=== PATIENT | male | born 1945 | race Caucasian/White ===

== ENCOUNTER 2017-04-01 23:26 | Emergency (ER) | payer MEDICARE, OTHER ==
[2017-04-01 23:37] VITALS: TEMP 97.9
[2017-04-01] MEDS ORDERED: SODIUM CHLORIDE 0.9% 1,000 ML IV STA (23:44)
[2017-04-01 23:46] LABS: Glucose,Whole Blood 119 mg/dL (75-99)
--- NOTE | 2017-04-01 23:47 | ED ---
General Adult HPI - General Chief complaint: Neuro Symptoms/Deficit Stated complaint: Arm Numbness/Difficulty Speaking Time Seen by Provider: 04/01/17 23:38 Source: patient, family, RN notes reviewed Mode of arrival: ambulatory Limitations: no limitations - History of Present Illness Initial comments: Patient is a pleasant 71-year-old male presenting to the emergency department complaining of speech problems. Onset was around an hour ago. Symptoms lasted 30-45 minutes. Symptoms have now resolved. Patient felt he was thinking okay however was unable to form words. Patient also had tingling of his right arm. No weakness. No coordination problems. No history of similar symptoms previously. Patient is currently symptom-free. No headache. - Related Data Home Medications Medication Instructions Recorded Confirmed Cephalexin [Keflex] 500 mg PO QID 04/01/17 04/01/17 Morphine Sulfate Ir [Msir] 30 mg PO QID PRN 04/01/17 04/01/17 Naproxen Sodium [Aleve] 220 mg PO Q12HR PRN 04/01/17 04/01/17 Allergies Allergy/AdvReac Type Severity Reaction Status Date / Time No Known Allergies Allergy Verified 04/01/17 23:52 Review of Systems ROS Statement: Those systems with pertinent positive or pertinent negative responses have been documented in the HPI. ROS Other: All systems not noted in ROS Statement are negative. Constitutional: Denies: fever Eyes: Denies: eye pain ENT: Denies: ear pain Respiratory: Denies: cough Cardiovascular: Denies: chest pain Endocrine: Denies: fatigue Gastrointestinal: Denies: abdominal pain Genitourinary: Denies: dysuria Musculoskeletal: Denies: back pain Skin: Denies: rash Neurological: Reports: paresthesias. Denies: headache, weakness Past Medical History History of Any Multi-Drug Resistant Organisms: None Reported Past Surgical History: Appendectomy, Orthopedic Surgery, Tonsillectomy Additional Past Surgical History / Comment(s): rotator cuff Past Psychological History: No Psychological Hx Reported Smoking Status: Former smoker Past Alcohol Use History: None Reported Past Drug Use History: None Reported General Exam Limitations: no limitations General appearance: alert, in no apparent distress Head exam: Present: atraumatic Eye exam: Present: normal appearance, PERRL ENT exam: Present: normal oropharynx Neck exam: Present: normal inspection Respiratory exam: Present: normal lung sounds bilaterally. Absent: chest wall tenderness Cardiovascular Exam: Present: regular rate, normal rhythm GI/Abdominal exam: Present: soft. Absent: tenderness Extremities exam: Present: normal inspection Neurological exam: Present: alert, oriented X3, CN II-XII intact. Absent: motor sensory deficit Expanded Patient oriented to: Present: person, place, time Speech: Present: fluid speech Cranial nerves: EOM's Intact: Normal, Facial Sensation: Normal Sensory exam: Upper Extremity Light Touch: Normal, Lower Extremity Light Touch: Normal Motor strength exam: RUE: 5, LUE: 5, RLE: 5, LLE: 5 Eye Response: (4) open spontaneously Motor Response: (6) obeys commands Verbal Response: (5) oriented Psychiatric exam: Present: normal affect, normal mood Skin exam: Present: normal color Course Vital Signs 04/01/17 04/02/17 23:33 00:27 Temperature 97.9 F Pulse Rate 78 66 Respiratory 18 20 Rate Blood Pressure 169/74 133/71 O2 Sat by Pulse 96 94 L Oximetry EKG Findings - EKG Comments: EKG Findings:: No sinus rhythm 70. First-degree AV block NH of 204. QRS 110. QT 434. QTC 416. Left axis. Incomplete right bundle-branch block. Left anterior fascicular block. No acute ST change. Medical Decision Making - Medical Decision Making Patient reevaluated and resting comfortably in bed. Patient remained symptom- free. Patient updated on results and need for follow-up. Case discussed with practitioner Dale, who will admit for Dr. Fox, covering for Dr. Troy - Lab Data Result diagrams: 04/01/17 23:40 04/01/17 23:40 Lab Results 04/01/17 04/01/17 04/01/17 Range/Units 23:39 23:40 23:40 WBC 8.7 (3.8-10.6) k/uL RBC 4.89 (4.30-5.90) m/uL Hgb 15.1 (13.0-17.5) gm/dL Hct 45.3 (39.0-53.0) % MCV 92.6 (80.0-100.0) fL MCH 30.8 (25.0-35.0) pg MCHC 33.3 (31.0-37.0) g/dL RDW 14.3 (11.5-15.5) % Plt Count 237 (150-450) k/uL Neutrophils % 52 % Lymphocytes % 33 % Monocytes % 7 % Eosinophils % 4 % Basophils % 1 % Neutrophils # 4.5 (1.3-7.7) k/uL Lymphocytes # 2.9 (1.0-4.8) k/uL Monocytes # 0.6 (0-1.0) k/uL Eosinophils # 0.4 (0-0.7) k/uL Basophils # 0.1 (0-0.2) k/uL PT (9.0-12.0) sec INR (<1.2) APTT (22.0-30.0) sec Sodium (137-145) mmol/L Potassium (3.5-5.1) mmol/L Chloride (98-107) mmol/L Carbon Dioxide (22-30) mmol/L Anion Gap mmol/L BUN (9-20) mg/dL Creatinine (0.66-1.25) mg/dL Est GFR (MDRD) Af Amer (>60 ml/min/1.73 sqM) Est GFR (MDRD) Non-Af (>60 ml/min/1.73 sqM) Glucose (74-99) mg/dL POC Glucose (mg/dL) 119 H (75-99) mg/dL POC Glu Squilgeer ID Adriano Okeefe Calcium (8.4-10.2) mg/dL Total Bilirubin (0.2-1.3) mg/dL AST (17-59) U/L ALT (21-72) U/L Alkaline Phosphatase (38-126) U/L Total Creatine Kinase 216 H (55-170) U/L Total Protein (6.3-8.2) g/dL Albumin (3.5-5.0) g/dL 04/01/17 04/01/17 Range/Units 23:40 23:40 WBC (3.8-10.6) k/uL RBC (4.30-5.90) m/uL Hgb (13.0-17.5) gm/dL Hct (39.0-53.0) % MCV (80.0-100.0) fL MCH (25.0-35.0) pg MCHC (31.0-37.0) g/dL RDW (11.5-15.5) % Plt Count (150-450) k/uL Neutrophils % % Lymphocytes % % Monocytes % % Eosinophils % % Basophils % % Neutrophils # (1.3-7.7) k/uL Lymphocytes # (1.0-4.8) k/uL Monocytes # (0-1.0) k/uL Eosinophils # (0-0.7) k/uL Basophils # (0-0.2) k/uL PT 10.8 (9.0-12.0) sec INR 1.1 (<1.2) APTT 24.5 (22.0-30.0) sec Sodium 141 (137-145) mmol/L Potassium 4.5 (3.5-5.1) mmol/L Chloride 106 (98-107) mmol/L Carbon Dioxide 24 (22-30) mmol/L Anion Gap 11 mmol/L BUN 23 H (9-20) mg/dL Creatinine 0.90 (0.66-1.25) mg/dL Est GFR (MDRD) Af Amer >60 (>60 ml/min/1.73 sqM) Est GFR (MDRD) Non-Af >60 (>60 ml/min/1.73 sqM) Glucose 117 H (74-99) mg/dL POC Glucose (mg/dL) (75-99) mg/dL POC Glu Squilgeer ID Calcium 9.3 (8.4-10.2) mg/dL Total Bilirubin 0.5 (0.2-1.3) mg/dL AST 30 (17-59) U/L ALT 39 (21-72) U/L Alkaline Phosphatase 32 L (38-126) U/L Total Creatine Kinase (55-170) U/L Total Protein 6.9 (6.3-8.2) g/dL Albumin 4.0 (3.5-5.0) g/dL - Radiology Data Radiology results: report reviewed (Computed tomography scan the brain shows no acute process), image reviewed (Chest x-ray shows no acute process) Disposition Clinical Impression: Transient cerebral ischemia Disposition: ADMITTED IP TO THIS [facility] Referrals: Chris Bedoya DO [Primary Care Provider] - 1-2 days Decision Time: 00:47
[2017-04-02 00:17] LABS: INR 1.1 (<1.2); Partial Thromboplastin Time 24.5 sec (22.0-30.0); Prothrombin Time 10.8 sec (9.0-12.0)
--- NOTE | 2017-04-02 00:22 | CT ---
EXAM: CT Head Without Intravenous Contrast. CLINICAL HISTORY: Reason: Neuro Deficits TECHNIQUE: Axial computed tomography images of the head/brain without intravenous contrast. CTDI is 57.4 mGy and DLP is 1030 mGy-cm. This CT exam was performed using one or more of the following dose reduction techniques: automated exposure control, adjustment of the mA and/or kV according to patient size, and/or use of iterative reconstruction technique. COMPARISON: No relevant prior studies available. FINDINGS: Brain: Age-appropriate volume loss and chronic microvascular ischemic changes. No hemorrhage. Ventricles: Unremarkable. No ventriculomegaly. Bones: Subcentimeter foreign body superficial to the left lateral orbital wall. No acute fracture. Sinuses: Unremarkable as visualized. No acute sinusitis. Mastoid air cells: Unremarkable as visualized. No mastoid effusion. IMPRESSION: No acute intracranial abnormality.
[2017-04-02 00:25] LABS: ALT 39 U/L (21-72); AST 30 U/L (17-59); Alkaline Phosphatase 32 U/L (38-126); Anion Gap 11 mmol/L; Blood Urea Nitrogen 23 mg/dL (9-20); Calcium 9.3 mg/dL (8.4-10.2); Carbon Dioxide 24 mmol/L (22-30); Chloride 106 mmol/L (98-107); Glucose 117 mg/dL (74-99); Non-African American GFR(MDRD) >60 (>60 ml/min/1.73 sqM); Potassium 4.5 mmol/L (3.5-5.1); Sodium 141 mmol/L (137-145); Total Bilirubin 0.5 mg/dL (0.2-1.3); Total Protein 6.9 g/dL (6.3-8.2)
--- NOTE | 2017-04-02 00:25 | XR ---
EXAM: XR Chest, 2 Views. CLINICAL HISTORY: Reason: altered mental status TECHNIQUE: Frontal and lateral views of the chest. COMPARISON: No relevant prior studies available. FINDINGS: Lungs: Unremarkable. No consolidation. Pleural spaces: Unremarkable. No pneumothorax. Heart: Unremarkable. No cardiomegaly. Mediastinum: Unremarkable. Bones: 13 mm foreign body projected over the T10 vertebral body. No acute fracture. IMPRESSION: No acute findings in the chest. 13 mm foreign body projected over the T10 vertebral body.
[2017-04-02 00:31] LABS: Basophils # (A) 0.1 k/uL (0-0.2); Basophils % (A) 1 %; CH 31.8; CHCM 34.5; Eosinophils # (A) 0.4 k/uL (0-0.7); Eosinophils % (A) 4 %; HCT 45.3 % (39.0-53.0); HDW 2.58; HGB 15.1 gm/dL (13.0-17.5); Luc # (Auto) 0.24; Luc % (Auto) 3; Lymphocytes # (A) 2.9 k/uL (1.0-4.8); Lymphocytes % (A) 33 %; MCH 30.8 pg (25.0-35.0); MCHC 33.3 g/dL (31.0-37.0); MCV 92.6 fL (80.0-100.0); Mean Platelet Volume 7.6; Monocytes # (A) 0.6 k/uL (0-1.0); Monocytes % (A) 7 %; Neutrophils # (A) 4.5 k/uL (1.3-7.7); Neutrophils % (A) 52 %; RBC 4.89 m/uL (4.30-5.90); RDW 14.3 % (11.5-15.5); WBC 8.7 k/uL (3.8-10.6)
[2017-04-02 00:32] LABS: Creatine Kinase 216 U/L (55-170)
[2017-04-02 00:45] LABS: Creatine Kinase MB 2.4 ng/mL (0.0-2.4); Troponin I <0.012 ng/mL (0.000-0.034)
[2017-04-02] MEDS ORDERED: ASPIRIN 325 MG TAB PO STA (00:48)
[2017-04-02] MEDS ORDERED: SODIUM CHLORIDE 0.9% 1,000 ML IV SCH (01:00)
[2017-04-02 01:30] VITALS: BP 156/67; PULSE 63; RESP 16
[2017-04-03] MEDS ORDERED: ASPIRIN 325 MG TAB PO SCH (09:00)
== END 2017-04-02 01:38 | disposition left against medical advice (07) ==
LOC: EC 23:26 → 6SEL 04-02 00:48 → UNDOADMIN 04-02 00:48 → EC 04-02 01:38
DX: G45.9 Transient cerebral ischemic attack, unspecified (principal); Z87.891 Personal history of nicotine dependence
CPT/HCPCS: 36415; 70450; 71020; 80053; 82550; 82553; 84484; 85025; 85610; 85730; 93005; 96360; 99284

== ENCOUNTER 2017-04-02 11:25 | Inpatient (IN) | payer OTHER, MEDICARE ==
[2017-04-02] MEDS ORDERED: SODIUM CHLORIDE 0.9% 1,000 ML IV STA (11:50)
[2017-04-02] MEDS ORDERED: SODIUM CHLORIDE 0.9% 500 ML IV STA (11:50)
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
[2017-04-02 12:13] LABS: Basophils % (A) 0 %; CH 31.1; CHCM 34.2; Eosinophils # (A) 0.2 k/uL (0-0.7); Eosinophils % (A) 3 %; HCT 44.6 % (39.0-53.0); HGB 15.6 gm/dL (13.0-17.5); Luc # (Auto) 0.16; Luc % (Auto) 2; Lymphocytes # (A) 2.1 k/uL (1.0-4.8); Lymphocytes % (A) 30 %; MCH 31.9 pg (25.0-35.0); MCV 91.3 fL (80.0-100.0); Mean Platelet Volume 6.9; Monocytes # (A) 0.5 k/uL (0-1.0); Monocytes % (A) 7 %; Neutrophils # (A) 3.9 k/uL (1.3-7.7); Neutrophils % (A) 57 %; RBC 4.88 m/uL (4.30-5.90); RDW 13.2 % (11.5-15.5); WBC 6.9 k/uL (3.8-10.6)
[2017-04-02 12:22] LABS: Partial Thromboplastin Time 24.8 sec (22.0-30.0); Prothrombin Time 10.6 sec (9.0-12.0)
[2017-04-02 12:31] LABS: ALT 39 U/L (21-72); AST 27 U/L (17-59); Alkaline Phosphatase 29 U/L (38-126); Anion Gap 10 mmol/L; Blood Urea Nitrogen 21 mg/dL (9-20); Calcium 9.4 mg/dL (8.4-10.2); Carbon Dioxide 25 mmol/L (22-30); Chloride 106 mmol/L (98-107); Glucose 95 mg/dL (74-99); Non-African American GFR(MDRD) >60 (>60 ml/min/1.73 sqM); Phosphorous 3.6 mg/dL (2.5-4.5); Potassium 4.6 mmol/L (3.5-5.1); Sodium 141 mmol/L (137-145); Total Bilirubin 0.4 mg/dL (0.2-1.3); Total Protein 7.1 g/dL (6.3-8.2)
[2017-04-02 12:39] LABS: Creatine Kinase 186 U/L (55-170)
[2017-04-02 12:50] LABS: Creatine Kinase MB 2.2 ng/mL (0.0-2.4); Troponin I <0.012 ng/mL (0.000-0.034)
[2017-04-02] MEDS ORDERED: ASPIRIN 325 MG TAB PO STA (13:18)
--- NOTE | 2017-04-02 15:03 | US ---
EXAMINATION TYPE: US carotid duplex BILAT DATE OF EXAM: 04/02/2017 COMPARISON: NONE CLINICAL HISTORY: Stenosis. EXAM MEASUREMENTS: RIGHT: Peak Systolic Velocity (PSV) cm/sec ----- Right CCA: 44.2 ----- Right ICA: 208.0 ----- Right ECA: 117.3 ICA/CCA ratio: 4.7 RIGHT: End Diastole cm/sec ----- Right CCA: 14.2 ----- Right ICA: 72.1 ----- Right ECA: 12.5 LEFT: Peak Systolic Velocity (PSV) cm/sec ----- Left CCA: 32.9 ----- Left ICA: --- ----- Left ECA: 71.1 ICA/CCA ratio: ---- LEFT: End Diastole cm/sec ----- Left CCA: 4.2 ----- Left ICA: --- ----- Left ECA: 8.9 VERTEBRALS (direction of flow): Right Vertebral: Antegrade Left Vertebral: Antegrade Severe atherosclerotic changes, right side shows near occlusion by ratio, unable to visualized distal ICA on right. This may be due to diving of vessel or possible distal stenosis. Left ICA appears to b e occluded. IMPRESSION: 1. Failure to visualize flow within the left ICA may represent occlusion or near occlusion. 2. ICA/CCA ratio >4 suggests near occlusion on the right. Flow velocity is 208 cm/s may be on the cade nward slope of near occlusion. Criteria for Assigning % of Stenosis / Diameter reduction (Estimation based on the indirect measurements of the internal carotid artery velocities (ICA PSV). 1. Normal (no stenosis)=ICA PSV < 125 cm/s: ratio < 2.0: ICA EDV<40 cm/s. 2. Less than 50% stenosis=ICA PSV < 125 cm/s: ratio < 2.0: ICA EDV<40 cm/s. 3. 50 to 69% stenosis=ICA PSV of 125 to 230 cm/s: ration 2.0 ? 4.0: ICA EDV 40-100 cm/s. 4. Greater than 70% stenosis to near occlusion= ICA PSV > 230 cm/s: ratio > 4.0: ICA EDV > 100 cm/s. 5. Near occlusion= ICA PSV velocities may be low or undetectable: variable ratio and ICA EDV. 6. Total occlusion=unable to detect flow.
[2017-04-02] MEDS ORDERED: hydrALAZINE HCL 20 MG/ML 1 ML VIAL IVP STA (15:33)
[2017-04-02] MEDS ORDERED: ONDANSETRON 4 MG/2 ML VIAL IVP STA (15:45)
[2017-04-02] MEDS ORDERED: ONDANSETRON 4 MG/2 ML VIAL IVP PRN (15:45)
[2017-04-02] MEDS ORDERED: MORPHINE SULFATE IR 15 MG TABLET PO PRN (18:21)
[2017-04-02] MEDS: SODIUM CHLORIDE 0.9% 1,000 ML IV SCH (18:24)
[2017-04-02] MEDS ORDERED: RX INFO: IV CONTRAST WAS GIVEN 1 EACH MISC MISCELLANE PRN (19:53)
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
--- NOTE | 2017-04-02 21:45 | CT ---
EXAMINATION TYPE: CT angio head neck DATE OF EXAM: 04/02/2017 HISTORY: Bilateral carotid occlusive disease. COMPARISON: NONE CT DLP: 320.40 mGycm. Automated Exposure Control for Dose Reduction was Utilized. TECHNIQUE: CTA scan of the neck is performed with IV Contrast, patient injected with 65 mL of Omnipa que 350, axial images are obtained, coronal and sagittal reformatted images are reviewed. Three-D rec onstructed images are created on an independent workstation and reviewed. FINDINGS: There is normal branching pattern of the great vessels on the aortic arch. There is arterial flow in both vertebral arteries. Left vertebral artery is larger than the right. There is arterial flow in the common carotid arteries bilaterally. There is apparent complete occlusi on of the left internal carotid artery at its origin. There is significant plaque at the right caroti d artery bifurcation and at least 50% stenosis and probably closer to 80% stenosis. There is arterial flow in the anterior middle and posterior cerebral arteries. There is arterial flow in the vertebrobasilar artery system. I see no evidence of aneurysm or neovascularity. There is no m ass effect. There is normal contrast opacification of the venous sinuses. IMPRESSION: There is complete occlusion of the left internal carotid artery at its origin with no internal caroti d artery flow seen on the left side to the infraclinoid region. There is probably more than 50% stenosis at the origin of the right internal carotid artery. This madeline nosis could be higher than 80%. No significant abnormality seen within the intracranial arterial circulation.
[2017-04-02] MEDS: PANTOPRAZOLE 40 MG TABLET PO SCH (22:01)
[2017-04-03] MEDS: SODIUM CHLORIDE 0.9% 1,000 ML IV SCH ×2 (02:41→10:11)
[2017-04-03 05:53] LABS: Appearance,Urine Clear (Clear); Bilirubin,Urine Negative (Negative); Glucose,Urine (UA) Negative (Negative); Ketones,Urine Negative (Negative); Leukocyte Esterase,Urine Negative (Negative); Nitrite,Urine Negative (Negative); Protein,Urine Negative (Negative); UA Billing (MACRO vs. MICRO) CHEM; Urobilinogen,Urine <2.0 mg/dL (<2.0)
[2017-04-03] MEDS: PANTOPRAZOLE 40 MG TABLET PO SCH (06:01)
[2017-04-03 07:27] LABS: Anion Gap 8 mmol/L; Blood Urea Nitrogen 17 mg/dL (9-20); Calcium 8.5 mg/dL (8.4-10.2); Carbon Dioxide 23 mmol/L (22-30); Chloride 111 mmol/L (98-107); Cholesterol 112 mg/dL (<200); Glucose 88 mg/dL (74-99); HDL Cholesterol 54 mg/dL (40-60); Non-African American GFR(MDRD) >60 (>60 ml/min/1.73 sqM); Potassium 4.3 mmol/L (3.5-5.1); Sodium 142 mmol/L (137-145); Triglycerides 60 mg/dL (<150)
[2017-04-03 07:28] LABS: Basophils % (A) 0 %; CHCM 33.2; Eosinophils # (A) 0.2 k/uL (0-0.7); Eosinophils % (A) 3 %; HDW 2.56; HGB 13.6 gm/dL (13.0-17.5); Luc # (Auto) 0.13; Luc % (Auto) 2; Lymphocytes % (A) 32 %; MCH 31.2 pg (25.0-35.0); MCHC 33.2 g/dL (31.0-37.0); MCV 93.7 fL (80.0-100.0); Mean Platelet Volume 6.8; Monocytes # (A) 0.4 k/uL (0-1.0); Monocytes % (A) 7 %; Neutrophils # (A) 3.5 k/uL (1.3-7.7); Neutrophils % (A) 56 %; RBC 4.37 m/uL (4.30-5.90); RDW 13.3 % (11.5-15.5); WBC 6.3 k/uL (3.8-10.6); WBC (Perox) 6.56
[2017-04-03] MEDS ORDERED: ASPIRIN 325 MG TAB PO SCH (09:00)
[2017-04-03] MEDS ORDERED: ASPIRIN 81 MG CHEW PO SCH (09:00)
--- NOTE | 2017-04-03 09:53 | HP ---
DATE OF ADMISSION: 04/02/17 CHIEF COMPLAINT: Difficulty speaking as well as dizziness. HISTORY OF PRESENT ILLNESS: This 71-year-old gentleman with a past medical history of multiple medical problems including DJD, prostate disorder, history of appendectomy being followed by Dr. Bedoya in the outpatient setting presented to the emergency room yesterday complaining of speech problems as well as dizziness. The patient unable to talk and the patient was recommended admission to the hospital at that time. Apparently, the patient went home and because of persistent symptoms, the patient came to [facility] and was admitted for further recommendations and treatment. There is no history of fever, rigors or chills. No history of headache, loss of consciousness or seizures. Carotid Doppler was done which showed of the right carotid artery. There is no history of fever, rigors or chills. Past medical history of rheumatoid arthritis, history of blood clots. SOCIAL HISTORY: Previous history of smoking. No history of alcohol. Medications prior to admission are: Home medications are reviewed and include : neg REVIEW OF SYSTEMS: HEENT: No diminished vision. No diminished hearing. Cardiovascular system: No angina or palpitations. Respiratory: As mentioned earlier. GI: No nausea or vomiting. : No dysuria. Nervous system: No numbness, weakness. Allergy/Immunology: No asthma or hayfever. Musculoskeletal : As mentioned earlier. Hematology/oncology: No history of anemia. Endocrine. No history of diabetes mellitus or hypothyroidism. Constitutional: As mentioned earlier. Dermatology: Negative. Rheumatology: Negative. Psychiatry: As mentioned earlier. PHYSICAL EXAMINATION: The patient is alert and oriented times three. Pulse 68. Blood pressure 186/92. Respiratory rate 14, temperature 96.9. Pulse ox 96% on room air. HEENT: Conjunctivae normal. Oral mucosa moist. NECK: No JVD. No carotid bruit. No lymph node enlargement. No thyroid enlargement. Cardiovascular: S1, S2 muffled. No S3, no S4. Respiratory: Breath sounds diminished at the bases. No rhonchi and no crackles. Abdomen is soft. Nontender. No mass palpable. Legs: No edema. No swelling. Nervous system : Higher functions as mentioned earlier. Moves all four limbs. No focal deficits. Lymphatics: No lymph nodes palpable in the neck, axillae or groin. SKIN: No ulcer, rash or bleeding. LABS: CBC within normal limits. BUN 21, alk phos 29. Creatinine kinase 186. ASSESSMENT: 1. Dysarthria and dizziness, possible acute transient ischemic attack. 2. Possible right carotid stenosis. 3. Degenerative joint disease. 4. History of prostate disorder. 5. History of appendectomy. 6. History of hernia repair. 7. Remote history of nicotine dependence. 8. Chronic pain syndrome. 9. Gastritis. RECOMMENDATIONS AND DISCUSSION: In this 71-year-old gentleman who presented with multiple complex medical issues, we will monitor the patient closely. Continue the current medications. Continue symptomatic treatment. Otherwise, at this time, I recommend continue antiplatelet agents. Closely follow with neurology. Neurovascular workup including 2D echo and lipid panel. The patient also seems to have some acute gastritis. We will treat the patient symptomatically. Further recommendations to follow. EKG was reviewed personally and showed block. Chest x-ray done yesterday showed [address] brain showed no acute abnormality. Once again the prognosis is guarded. MTDD
[2017-04-03 10:13] VITALS: TEMP 98.8
--- NOTE | 2017-04-03 11:35 | CONS ---
This 71-year-old gentleman who came to the emergency room with history of slurred speech, which lasted for 15 minutes with complete recovery. He also noticed some tingling sensation in both hands, no evidence of motor deficit. He never had any carotid study in the past. Patient had a CT angiogram of the carotid, which shows left internal totally occluded, right internal is 80% stenosis. No history of atrial fibrillation. No previous history of TIA or stroke. Patient has a chronic back problem secondary to back injury in the past. He takes morphine pill daily for his chronic back problem. On examination, neck is supple, no bruit appreciated. CHEST: Clear on auscultation. First and second sounds normal. ABDOMEN: Soft. Brachial, radial and femoral pulses are present. MOTOR FUNCTION: Patient has some tingling sensation of both hands. No evidence of any motor weakness. CT scan shows no intracranial bleed. CTA showed left internal totally occluded, right is 80% stenosis. Patient is scheduled to have MRI. His symptoms are completely gone and since left internal totally occluded there is no indication for surgical intervention for the left side. Patient will be evaluated for right carotid occlusive disease, most likely patient will need right carotid endarterectomy. We will work him up and we will discuss with internal medicine and with neurology. At this point, patient should be on antiplatelet therapy and control of blood pressure. I will follow with you. MAURICE
[2017-04-03 15:14] VITALS: BP 169/77; PULSE 58; RESP 14
--- NOTE | 2017-04-03 18:39 | P.PN ---
Subjective This patient is a 71-year-old male who was seen yesterday on neurology consultation for evaluation of right-sided weakness and some speech impairment. He was brought into the emergency room yesterday and was evaluated by Dr. Patel. He was sent for a computed tomography scan of the brain which revealed no acute findings. Patient was admitted to hospital for further evaluation of TIA versus stroke. He underwent a carotid Doppler study which revealed significant changes suggesting complete left ICA blockage and 80% right ICA occlusion. A stat CTA angiogram was performed just today which revealed no intracranial bleed. CTA showed total occlusion of the left ICA and 80% occlusion of the right ICA. A stat vascular surgery consultation was ordered yesterday at midnight for Dr. Cardona. Patient was seen this morning by Dr. Cardona who reviewed his CTA angiogram results. He is recommending right carotid endarterectomy procedure once he is discharged. He is be started on antiplatelet therapy and tight control of his blood pressure. Patient was sent for MRI of the brain today results of which are still pending. Patient should follow up with vascular surgery and Dr. Cardona regarding possible planned intervention for right CEA. We will continue close monitoring of this patient in the hospital. He has had no further recurrence of right-sided symptoms. His speech is remained stable. We will continue close neurological follow-up for the patient during this admission. Objective - Vital Signs Vital signs: Vital Signs Temp 98.8 F 04/03/17 08:00 Pulse 58 L 04/03/17 12:00 Resp 14 04/03/17 12:00 BP 169/77 04/03/17 12:00 Pulse Ox 93 L 04/03/17 12:00 Intake & Output 04/02/17 04/03/17 04/03/17 18:59 06:59 18:59 Intake Total 500 720 Output Total 1000 Balance 500 -280 Weight 89 kg Intake: Intake, IV Titration 500 Amount Sodium Chloride 0.9% 1, 500 000 ml @ 100 mls/hr IV . Q10H LISSET Rx#:[id number] Oral 720 Output: Urine 1000 Other: # Voids 3 - Exam Physical examination: PHYSICAL EXAMINATION: Patient is resting comfortably in bed. VITAL SIGNS: Blood pressure is [169/77]. Heart rate is [58]. Respiration is [18] . Temperature is [98.8]. HEENT: Head is atraumatic, neck is supple, there were no carotid bruits. CHEST: Lungs are clear to auscultation and percussion. CARDIAC: S1, S2 normal rate and rhythm. There is no murmur. ABDOMEN: Soft and nontender. Bowel sounds are present. EXTREMITIES: There is no pedal edema. Peripheral pulses are present. Neurological examination: Patient's neurological examination is unchanged from yesterday. He has no new findings of right-sided hemiparesis or weakness. His speech remains clear. - Labs CBC & Chem 7: 04/03/17 06:26 04/03/17 06:24 Labs: Abnormal Lab Results - Last 24 Hours (Table) 04/03/17 Range/Units 06:24 Chloride 111 H (98-107) mmol/L Assessment and Plan (1) History of recurrent TIAs Status: Acute Code(s): Z86.73 - PRSNL HX OF TIA (TIA), AND CEREB INFRC W/O RESID DEFICITS (2) Chronic pain syndrome Status: Acute Code(s): G89.4 - CHRONIC PAIN SYNDROME (3) Left acute arterial ischemic stroke, MCA (middle cerebral artery) Status: Acute Code(s): I63.512 - CEREB INFRC D/T UNSP OCCLS OR STENOS OF LEFT MID CEREB ART Plan: This patient is a 71-year-old male who apparently yesterday evening noted difficulty with his thought process. He states he was having difficulty getting his words out. He had word finding difficulties and could not articulate his speech at all very well yesterday. Apparently he came into the emergency room at [facility] and did demonstrate evidence of slurred speech with weakness. He has no previous history of TIA or stroke. He is a [employer] and apparently wanted to make sure that his [employer] insurance would cover his admission. He was held in the ER. He was sent for a computed tomography scan of the brain which was done yesterday. It was reported negative for any acute changes. He has subsequently undergone a carotid Doppler study today the results of which are noted above. We have recommended a stat CTA angiogram of the head and neck to be done. We would recommend a vascular surgery consultation for this patient. Patient was seen by Dr. Cardona from vascular surgery today. His recommendations are as noted above. We will obtain an MRI of the brain for further evaluation of possible acute left hemispheric stroke. Patient went for MRI of the brain this morning and results are pending. Vascular surgery recommend starting the patient on antiplatelet therapy. He will most likely require a right CEA procedure once he is discharged. His overall prognosis at this time remains very guarded.
--- NOTE | 2017-04-04 12:47 | ECHOF ---
Referral Reason:Thrombus MEASUREMENTS -------- HEIGHT: 170.2 cm WEIGHT: 88.9 kg BP: 164/73 RVIDd: 2.9 cm (< 3.3) IVSd: 1.2 cm (0.6 - 1.1) LVIDd: 5.2 cm (3.9 - 5.3) LVPWd: 1.3 cm (0.6 - 1.1) IVSs: 1.7 cm LVIDs: 3.2 cm LVPWs: 1.5 cm LA Diam: 3.8 cm (2.7 - 3.8) LAESV Index (A-L): 35.75 ml/m Ao Diam: 4.5 cm (2.0 - 3.7) AV Cusp: 1.0 cm (1.5 - 2.6) LA Diam: 3.5 cm (2.7 - 3.8) MV EXCURSION: 17.570 mm (> 18.000) MV EF SLOPE: 46 mm/s (70 - 150) EPSS: 0.7 cm MV E Nacho: 0.44 m/s MV DecT: 297 ms MV A Nacho: 1.18 m/s MV E/A Ratio: 0.37 AV maxP.87 mmHg AV meanP.52 mmHg RAP: 5.00 mmHg RVSP: 29.84 mmHg FINDINGS -------- Sinus rhythm. This was a techncally difficult study with suboptimal views, , Definity utilized for enhancement of images. There is mild concentric left ventricular hypertrophy. Overall left ventricular systolic function is low-normal with, an EF between 50 - 55 %. The right ventricle is normal in size. LA is moderately dilated 34-39 ml/m2 The right atrial size is normal. 1.5MG OF DEFINITY UTLIZED: 2 OR MORE WALL SEGMENTS NOT VISUALIZED. There is mild aortic stenosis present. Peak/mean gradient across the Aortic Valve is 16.87mmHg / 7.52mmHg. Mild mitral annular calcification present. Mild mitral regurgitation is present. Mild tricuspid regurgitation present. Right ventricular systolic pressure is normal at < 35 mmHg. There is no evidence of pulmonary hypertension. There is no pulmonic regurgitation present. Aortic Root is dilated and measures 4.5cm. There is no pericardial effusion. CONCLUSIONS -------- 1. This was a techncally difficult study with suboptimal views, , Definity utilized for enhancement of images. 2. Right ventricular systolic pressure is normal at < 35 mmHg. 3. There is no evidence of pulmonary hypertension. 4. There is no pulmonic regurgitation present. 5. Aortic Root is dilated and measures 4.5cm. 6. There is no pericardial effusion. 7. There is mild concentric left ventricular hypertrophy. 8. LA is moderately dilated 34-39 ml/m2 9. 1.5MG OF DEFINITY UTLIZED: 2 OR MORE WALL SEGMENTS NOT VISUALIZED. 10. There is mild aortic stenosis present. 11. Peak/mean gradient across the Aortic Valve is 16.87mmHg / 7.52mmHg. 12. Mild mitral annular calcification present. 13. Mild mitral regurgitation is present. 14. Mild tricuspid regurgitation present. COMPUTING SYSTEMS MECHANIC: Crystal Campbell RDCS
--- NOTE | 2017-04-06 14:00 | DS ---
FINAL DIAGNOSES: 1. Dysarthria ( ) status post acute transient ischemic attack. 2. Possible aortic stenosis. 3. Degenerative joint disease. 4. History of prostate disorder. 5. History of appendectomy. 6. History of hernia repair. 7. Remote history of nicotine dependence. 8. Chronic pain syndrome. 9. History of gastritis. DISCHARGE DISPOSITION: The patient is being discharged in stable condition with guarded prognosis. Total time taken 35 minutes. HISTORY OF PRESENT ILLNESS: This 71-year-old gentleman with past medical history of difficulty speaking ( ) the patient being treated symptomatically , possible CVA. The patient improved significantly. On exam, vital signs are stable. Cardiovascular: S1, S2 normal. Abdomen soft. Nervous system: No focal deficits. DISCHARGE ADVICE AND MEDICATIONS: 1. Diet is cardiac. 2. Activity limited until follow up. 3. Follow-up with Dr. Bedoya in two to three days. 4. Follow-up with Dr. Cardona as advised in one week. 5. Follow carotid stenosis. Medications are: 1. Ecotrin 81 mg po daily. 2. Lipitor 10 mg po q.h.s. 3. Keflex finish ( ) dose. 4. MS-IR 30 mg q.i.d. prn 5. Aleve 220 mg po b.i.d. Once again, the patient is being discharged in stable condition with guarded prognosis. MTDD
== END 2017-04-03 18:04 | disposition home or self-care (01) | DRG 68 ==
LOC: EC 11:25 → 6SEL 13:20
PROVIDERS: ADMIT Hospitalist; ATTEND Hospitalist
DX: I65.23 Occlusion and stenosis of bilateral carotid arteries (principal); M06.9 Rheumatoid arthritis, unspecified; G89.4 Chronic pain syndrome; K29.70 Gastritis, unspecified, without bleeding; M19.90 Unspecified osteoarthritis, unspecified site; N42.9 Disorder of prostate, unspecified; M54.9 Dorsalgia, unspecified; Z86.73 Personal history of transient ischemic attack (TIA), and cerebral infarction without residual deficits; Z87.891 Personal history of nicotine dependence
CPT/HCPCS: 36415; 70496; 70498; 80048; 80053; 80061; 81003; 82550; 82553; 83735; 84100; 84484; 85025; 85610; 85730; 93005; 93306; 93880; 96374; 96375; 99285

== ENCOUNTER 2017-12-21 21:42 | Emergency (ER) | payer OTHER, MEDICARE ==
[2017-12-21 22:21] VITALS: BP 176/76; PULSE 73; RESP 18; TEMP 97.5
[2017-12-21 22:32] LABS: Glucose,Whole Blood 99 mg/dL (75-99)
[2017-12-21] MEDS ORDERED: HEPARIN SODIUM,PORCINE 5,000 UNIT/ML 1 ML VIAL ONE (23:00)
[2017-12-21] MEDS ORDERED: SODIUM CHLORIDE 0.9% 1,000 ML BAG ONE (23:00)
[2017-12-21] MEDS ORDERED: ASPIRIN 81 MG ONE (23:00)
[2017-12-21] MEDS ORDERED: HEPARIN SOD,PORK IN 0.45% NACL PMX 25,000 UNIT/500 ML BAG IV ONE (23:00)
[2017-12-22 05:47] LABS: Basophils % (A) 1 %; Eosinophils # (A) 0.4 k/uL (0-0.7); Eosinophils % (A) 4 %; HCT 44.8 % (39.0-53.0); HGB 15.5 gm/dL (13.0-17.5); Lymphocytes # (A) 2.4 k/uL (1.0-4.8); Lymphocytes % (A) 28 %; MCH 31.2 pg (25.0-35.0); MCHC 34.6 g/dL (31.0-37.0); Mean Platelet Volume 6.8; Monocytes # (A) 0.6 k/uL (0-1.0); Monocytes % (A) 8 %; Neutrophils # (A) 4.8 k/uL (1.3-7.7); Neutrophils % (A) 57 %; Platelet Count 195 k/uL (150-450); RBC 4.97 m/uL (4.30-5.90); RDW 13.2 % (11.5-15.5); WBC 8.4 k/uL (3.8-10.6)
[2017-12-22 05:49] LABS: Partial Thromboplastin Time 23.8 sec (22.0-30.0); Prothrombin Time 9.9 sec (9.0-12.0)
[2017-12-22 06:09] LABS: ALT 25 U/L (21-72); AST 26 U/L (17-59); Alkaline Phosphatase 31 U/L (38-126); Amylase 46 U/L (30-110); Anion Gap 12 mmol/L; Blood Urea Nitrogen 26 mg/dL (9-20); Calcium 9.3 mg/dL (8.4-10.2); Carbon Dioxide 26 mmol/L (22-30); Chloride 106 mmol/L (98-107); Glucose 99 mg/dL (74-99); Lipase 82 U/L (23-300); Magnesium 1.9 mg/dL (1.6-2.3); Phosphorus 4.6 mg/dL (2.5-4.5); Potassium 4.6 mmol/L (3.5-5.1); Sodium 144 mmol/L (137-145); Total Bilirubin 0.4 mg/dL (0.2-1.3)
[2017-12-22 06:10] LABS: Creatine Kinase 97 U/L (55-170); Creatine Kinase MB 1.4 ng/mL (0.0-2.4); Troponin I <0.012 ng/mL (0.000-0.034)
--- NOTE | 2017-12-22 12:36 | CT ---
EXAMINATION TYPE: CT brain wo con DATE OF EXAM: 12/22/2017 COMPARISON: 04/01/2017 HISTORY: Stroke. Left eye disturbances. CT DLP: mGycm Automated exposure control for dose reduction was used. FINDINGS: There is cerebral cortical atrophy. There is no mass effect nor midline shift. There is no sign of in tracranial hemorrhage. The calvarium is intact. IMPRESSION: CEREBRAL ATROPHY. NO ACUTE INTRACRANIAL ABNORMALITY. NO CHANGE.
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
== END 2017-12-22 00:45 | disposition home or self-care (01) ==
LOC: EC 21:42
DX: G45.9 Transient cerebral ischemic attack, unspecified (principal); I63.9 Cerebral infarction, unspecified
CPT/HCPCS: 36415; 80053; 82150; 82550; 82553; 83690; 83735; 84100; 84484; 85025; 85610; 85730; 71046; 70450; 99284; 96360; J1644 ×2

== ENCOUNTER 2019-08-31 12:30 | Emergency (ER) | payer OTHER ==
[2019-08-31 13:02] VITALS: BP 146/74; PULSE 57; RESP 20; TEMP 97.7
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
[2019-08-31 13:50] LABS: Appearance,Urine Clear (Clear); Bilirubin,Urine Negative (Negative); Blood,Urine Negative (Negative); Color,Urine Yellow; Glucose,Urine (UA) Negative (Negative); Ketones,Urine Negative (Negative); Leukocyte Esterase,Urine Negative (Negative); Nitrite,Urine Negative (Negative); PH, Urine 5.5 (5.0-8.0); Protein,Urine Negative (Negative); Specific Gravity,Urine 1.021 (1.001-1.035); Urobilinogen,Urine <2.0 mg/dL (<2.0)
== END 2019-08-31 14:10 | disposition home or self-care (01) ==
LOC: EC 12:30
DX: R33.8 Other retention of urine (principal); N40.1 Benign prostatic hyperplasia with lower urinary tract symptoms; I10 Essential (primary) hypertension; M19.90 Unspecified osteoarthritis, unspecified site; M06.9 Rheumatoid arthritis, unspecified; Z87.891 Personal history of nicotine dependence; Z79.891 Long term (current) use of opiate analgesic; Z79.899 Other long term (current) drug therapy
CPT/HCPCS: 51701; 81003; 99283

== ENCOUNTER 2019-10-06 12:14 | Emergency (ER) | payer OTHER ==
[2019-10-06 12:19] VITALS: BP 172/79; PULSE 64; RESP 20; TEMP 98
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
== END 2019-10-06 13:05 | disposition home or self-care (01) ==
LOC: EC 12:14
DX: H54.61 Unqualified visual loss, right eye, normal vision left eye (principal); I10 Essential (primary) hypertension; N42.9 Disorder of prostate, unspecified; M06.9 Rheumatoid arthritis, unspecified; Z79.899 Other long term (current) drug therapy; Z79.891 Long term (current) use of opiate analgesic; Z87.891 Personal history of nicotine dependence; Z86.73 Personal history of transient ischemic attack (TIA), and cerebral infarction without residual deficits
CPT/HCPCS: 99283

== ENCOUNTER 2020-03-27 11:41 | Observation (INO) | payer OTHER ==
[2020-03-27] MEDS ORDERED: ONDANSETRON 4 MG/2 ML VIAL IVP STA (12:18)
[2020-03-27] MEDS ORDERED: PANTOPRAZOLE 40 MG/10 ML VIAL IVP STA (12:18)
[2020-03-27] MEDS ORDERED: SODIUM CHLORIDE 0.9% 1,000 ML IV STA ×2 (12:18)
[2020-03-27 12:36] LABS: Basophils % (A) 0 %; Eosinophils # (A) 0.1 k/uL (0-0.7); Eosinophils % (A) 1 %; HCT 36.8 % (39.0-53.0); HGB 12.2 gm/dL (13.0-17.5); Lymphocytes # (A) 2.2 k/uL (1.0-4.8); Lymphocytes % (A) 17 %; MCH 32.3 pg (25.0-35.0); MCHC 33.2 g/dL (31.0-37.0); MCV 97.3 fL (80.0-100.0); Mean Platelet Volume 7.4; Monocytes # (A) 0.8 k/uL (0-1.0); Monocytes % (A) 6 %; Neutrophils # (A) 9.9 k/uL (1.3-7.7); Neutrophils % (A) 76 %; Platelet Count 279 k/uL (150-450); RBC 3.79 m/uL (4.30-5.90); RDW 14.4 % (11.5-15.5); WBC 13.2 k/uL (3.8-10.6)
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
[2020-03-27 12:54] LABS: Lactic Acid, Venous 1.1 mmol/L (0.7-2.0)
[2020-03-27 12:57] LABS: ALT 55 U/L (4-49); AST 31 U/L (17-59); African American GFR (CKD) >90 (>60 ml/min/1.73 sqM); Albumin 3.9 g/dL (3.5-5.0); Alkaline Phosphatase 30 U/L (38-126); Anion Gap 9 mmol/L; Blood Urea Nitrogen 16 mg/dL (9-20); Calcium 9.1 mg/dL (8.4-10.2); Carbon Dioxide 24 mmol/L (22-30); Chloride 99 mmol/L (98-107); Glucose 118 mg/dL (74-99); Non-African American GFR(CKD) 89 (>60 ml/min/1.73 sqM); Potassium 4.1 mmol/L (3.5-5.1); Sodium 132 mmol/L (137-145); Total Bilirubin 0.5 mg/dL (0.2-1.3); Total Protein 6.3 g/dL (6.3-8.2)
[2020-03-27 13:20] LABS: Partial Thromboplastin Time 21.7 sec (22.0-30.0)
[2020-03-27] MEDS ORDERED: ONDANSETRON 4 MG/2 ML VIAL IVP PRN (14:24)
[2020-03-27] MEDS ORDERED: ACETAMINOPHEN TAB 325 MG TAB PO PRN (14:24)
[2020-03-27] MEDS ORDERED: NALOXONE 0.4 MG/ML 1 ML VIAL IV PRN (14:24)
[2020-03-27] MEDS ORDERED: IBUPROFEN 400 MG TAB PO PRN (14:24)
[2020-03-27] MEDS ORDERED: KETOROLAC 30 MG/ML 1 ML VIAL IVP PRN (14:24)
[2020-03-27] MEDS: SODIUM CHLORIDE 0.9% 1,000 ML IV SCH (14:59)
[2020-03-27] MEDS ORDERED: ALPRAZolam 0.25 MG TAB PO PRN (17:00)
[2020-03-27] MEDS ORDERED: MORPHINE SULFATE IR 15 MG TABLET PO PRN (17:19)
[2020-03-27] MEDS ORDERED: MORPHINE SULFATE IR 15 MG TABLET PO SCH (17:30)
--- NOTE | 2020-03-27 17:34 | XR ---
EXAMINATION TYPE: XR chest 1V portable DATE OF EXAM: 03/27/2020 COMPARISON: 11/23/2018 HISTORY: Altered mental status TECHNIQUE: 2 views FINDINGS: There are some linear density in the right mid and lower lung field. Heart is enlarged. The re is slight elevated right diaphragm. There are no hilar masses. IMPRESSION: Cardiomegaly unchanged. Scarring and atelectasis right lower lobe not significantly diffe rent than old exam. No heart failure seen.
--- NOTE | 2020-03-27 18:21 | CT ---
EXAMINATION TYPE: CT abdomen pelvis wo con DATE OF EXAM: 03/27/2020 COMPARISON: None HISTORY: abdominal pain, GI bleed CT DLP: 957.7 mGycm Automated exposure control for dose reduction was used. Images obtained from the diaphragm to the floor the pelvis with no contrast. There is some linear infiltrate and atelectasis at the lung bases. Heart is enlarged. There is no per icardial effusion. There is no pleural effusion. There is some pleural lipomatosis at the lung bases. Liver spleen stomach pancreas gallbladder appear intact. Bile ducts are not dilated. There is no adrenal mass. Kidneys have normal size. There is no hydronephrosis. Ureters are not dilat ed. There is no retroperitoneal adenopathy. Bladder distends smoothly. There is no inguinal hernia. T here is no mesenteric edema. There is no ascites or free air. I see no sign of a bowel obstruction. A ppendix is not seen. There is no sign of thickened appendix. There is multilevel spondylotic change i n the thoracic and lumbar spine. There is no significant compression deformity. Bony pelvis appears i ntact. IMPRESSION: Cardiomegaly. Infiltrates and atelectasis at the lung bases. Atherosclerotic vascular disease. No evidence of acute abnormality within the abdomen pelvis. There i s mild sigmoid diverticulosis without diverticulitis.
[2020-03-27 18:32] LABS: Appearance,Urine Clear (Clear); Bilirubin,Urine Negative (Negative); Blood,Urine Negative (Negative); Color,Urine Yellow; Glucose,Urine (UA) Negative (Negative); Ketones,Urine Negative (Negative); Leukocyte Esterase,Urine Negative (Negative); Nitrite,Urine Negative (Negative); PH, Urine 5.5 (5.0-8.0); Protein,Urine Trace (Negative); Specific Gravity,Urine 1.026 (1.001-1.035); Urobilinogen,Urine <2.0 mg/dL (<2.0)
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
[2020-03-27] MEDS ORDERED: ATORVASTATIN 10 MG TAB PO SCH (21:00)
[2020-03-27] MEDS: METOPROLOL TARTRATE 12.5 MG TAB PO SCH (21:00)
[2020-03-27] MEDS ORDERED: LATANOPROSTENE BUNOD BOTH EYES SCH (21:00)
[2020-03-27] MEDS: TAMSULOSIN 0.4 MG CAP.ER.24H PO SCH (21:01)
[2020-03-27] MEDS: OXYBUTYNIN CHLORIDE 5 MG TAB PO SCH (21:01)
[2020-03-27] MEDS: PANTOPRAZOLE 40 MG/10 ML VIAL IVP SCH (21:01)
[2020-03-28 03:13] LABS: Basophils % (A) 0 %; Eosinophils # (A) 0.3 k/uL (0-0.7); Eosinophils % (A) 3 %; HCT 29.8 % (39.0-53.0); Lymphocytes % (A) 19 %; MCH 32.4 pg (25.0-35.0); MCHC 33.6 g/dL (31.0-37.0); MCV 96.5 fL (80.0-100.0); Mean Platelet Volume 7.4; Monocytes # (A) 0.7 k/uL (0-1.0); Monocytes % (A) 6 %; Neutrophils # (A) 7.5 k/uL (1.3-7.7); Neutrophils % (A) 71 %; Platelet Count 228 k/uL (150-450); RBC 3.09 m/uL (4.30-5.90); WBC 10.5 k/uL (3.8-10.6)
[2020-03-28 06:45] LABS: Basophils % (A) 0 %; Eosinophils # (A) 0.3 k/uL (0-0.7); Eosinophils % (A) 3 %; HCT 29.8 % (39.0-53.0); Lymphocytes # (A) 1.7 k/uL (1.0-4.8); Lymphocytes % (A) 18 %; MCH 32.4 pg (25.0-35.0); MCHC 33.7 g/dL (31.0-37.0); MCV 96.3 fL (80.0-100.0); Mean Platelet Volume 7.1; Monocytes # (A) 0.6 k/uL (0-1.0); Monocytes % (A) 6 %; Neutrophils # (A) 6.9 k/uL (1.3-7.7); Neutrophils % (A) 72 %; Platelet Count 228 k/uL (150-450); WBC 9.6 k/uL (3.8-10.6)
[2020-03-28 06:47] LABS: African American GFR (CKD) >90 (>60 ml/min/1.73 sqM); Anion Gap 4 mmol/L; Blood Urea Nitrogen 12 mg/dL (9-20); Calcium 8.2 mg/dL (8.4-10.2); Carbon Dioxide 23 mmol/L (22-30); Chloride 103 mmol/L (98-107); Glucose 98 mg/dL (74-99); Non-African American GFR(CKD) 86 (>60 ml/min/1.73 sqM); Potassium 4.5 mmol/L (3.5-5.1); Sodium 130 mmol/L (137-145)
[2020-03-28 08:08] VITALS: RESP 18
[2020-03-28] MEDS: TAMSULOSIN 0.4 MG CAP.ER.24H PO SCH (08:42)
[2020-03-28] MEDS: OXYBUTYNIN CHLORIDE 5 MG TAB PO SCH (08:42)
[2020-03-28] MEDS: METOPROLOL TARTRATE 12.5 MG TAB PO SCH (08:42)
[2020-03-28] MEDS: PANTOPRAZOLE 40 MG/10 ML VIAL IVP SCH (08:43)
[2020-03-28] MEDS ORDERED: FINASTERIDE 5 MG TAB PO SCH (09:00)
[2020-03-28 12:17] LABS: Basophils % (A) 0 %; Eosinophils # (A) 0.2 k/uL (0-0.7); Eosinophils % (A) 2 %; HCT 31.1 % (39.0-53.0); HGB 10.2 gm/dL (13.0-17.5); Lymphocytes # (A) 1.5 k/uL (1.0-4.8); Lymphocytes % (A) 17 %; MCH 31.3 pg (25.0-35.0); MCHC 32.9 g/dL (31.0-37.0); MCV 95.2 fL (80.0-100.0); Mean Platelet Volume 7.3; Monocytes # (A) 0.5 k/uL (0-1.0); Monocytes % (A) 6 %; Neutrophils # (A) 6.4 k/uL (1.3-7.7); Neutrophils % (A) 73 %; Platelet Count 248 k/uL (150-450); RBC 3.27 m/uL (4.30-5.90); RDW 14.7 % (11.5-15.5); WBC 8.8 k/uL (3.8-10.6)
[2020-03-28 12:24] VITALS: TEMP 98.3
[2020-03-28] MEDS ORDERED: PROPOFOL 10 MG/ML 20 ML VIAL IV ONE (13:25)
[2020-03-28] MEDS ORDERED: fentaNYL (PF) 50 MCG/ML 2 ML AMP ONE (13:25)
[2020-03-28] MEDS ORDERED: MIDAZOLAM 2 MG/2 ML VIAL ONE (13:25)
[2020-03-28] MEDS ORDERED: LIDOCAINE 1% INJ 10MG/ML (20 ML MDV) ONE (13:25)
[2020-03-28] MEDS ORDERED: IV FLUID CONTINUATION 950 ML IV ONE (13:27)
--- NOTE | 2020-03-28 13:42 | P.PCN ---
Date of Procedure: 03/28/20 Procedure(s) Performed: BRIEF HISTORY: Patient is a 74-year-old, pleasant, male scheduled for an upper endoscopy as part of evaluation of multiple episodes of dark red emesis for the last 1 week duration.. PROCEDURE PERFORMED: Esophagogastroduodenoscopy with biopsy. PREOPERATIVE DIAGNOSIS: Acute upper GI bleed. IV sedation per anesthesia. PROCEDURE: After informed consent was obtained, the patient was brought into the endoscopy unit. IV sedation was administered by Anesthesia under continuous monitoring. Initially the Olympus GIF-140 video endoscope was inserted into the mouth. Esophagus intubated without any difficulty. It was gradually advanced into the stomach and duodenum and carefully examined. The second part of the duodenum appeared normal. In the duodenal bulb along the sweep there was a 1.5 cm deep clean-based ulcer with no active bleeding. Biopsies were done from this area. The scope at this time was withdrawn to the stomach, adequately insufflated with air, and upon careful examination, mucosa of the antrum, gastritis and biopsies were done from this area. The body, cardia and the fundus appeared normal. The scope was then withdrawn into the esophagus. The GE junction was located at 39 cm from the incisors. The esophagus appeared normal. There were no erosions or ulcerations seen and the patient tolerated the procedure well. IMPRESSION: 1. 1.5 cm deep and clean-based duodenal bulbar ulcer with no active bleeding. 2. Antral erosive gastritis RECOMMENDATIONS: The findings of this examination were discussed with the patient He'll be continued on Protonix 40 mg daily. He was advised to avoid NSAIDs. Diet will be advanced as tolerated. He can be sessile. Tomorrow with outpatient follow-up in 3-4 weeks.
[2020-03-28] MEDS: SODIUM CHLORIDE 0.9% 1,000 ML IV SCH (14:09)
[2020-03-28 15:00] VITALS: BP 168/60; PULSE 60
--- NOTE | 2020-03-28 17:30 | CONS ---
CONSULTATION DATE OF THE SERVICE: 03/28/2020 REQUESTING PHYSICIAN: [facility]. REASON FOR CONSULTATION: Acute upper gastrointestinal bleed. HISTORY OF PRESENT ILLNESS: The patient is a 74-year-old pleasant white male who was admitted to the hospital because of multiple episodes of coffee-ground emesis for the last one week duration. He was having about 3 or 4 episodes each day, some of which had some coffee-ground material associated with epigastric pain. He denies any rectal bleeding or melena. He came to the emergency room yesterday and subsequently admitted to the hospital for further evaluation. The patient states that he was diagnosed with peptic ulcer disease a few years ago. He denies any NSAID use. His initial hemoglobin was 12.2 g/dL. PAST MEDICAL HISTORY: Significant for CVA, TIA, hypertension, hyperlipidemia, degenerative joint disease, history of rheumatoid arthritis, chronic pain syndrome. MEDICATIONS: At home include aspirin, Lipitor, morphine, Proscar, Klonopin, metoprolol, Lopressor, Ditropan and Flomax. ALLERGIES: None. SOCIAL HISTORY: Remote history of smoking. No alcohol use. FAMILY HISTORY: Mother has rheumatoid arthritis. ALLERGIES: None. REVIEW OF SYSTEMS: CARDIOPULMONARY: No chest pain or shortness of breath. : No dysuria or hematuria. MUSCULOSKELETAL: Unremarkable. SKIN: Unremarkable. ENDOCRINE: Unremarkable. PSYCHIATRIC: Unremarkable. NEUROLOGY: Some headaches. ENT/VISION: Unremarkable. CONSTITUTIONAL: No recent weight loss. No fever, chills, night sweats. PAST SURGICAL HISTORY: He did have hernia repair, appendectomy, tonsillectomy, right rotator cuff repair. PHYSICAL EXAMINATION: Appears comfortable, in no apparent distress. Vital signs are stable, blood pressure is 134/66, pulse rate 56, temperature 98.3. HEENT: Examination unremarkable, sclerae nonicteric, oral cavity no lesions. NECK: No JVD or lymph node encouragement. CHEST: Clear to auscultation. HEART: Regular rate and rhythm. ABDOMEN: Soft bowel sounds are positive. Mild tenderness in the epigastric area. EXTREMITIES: No pedal edema. SKIN: No rashes. NEUROLOGIC: Alert and oriented x3. No focal deficits. LABS: WBC 13.2, today it is 8.8, hemoglobin 10.2, platelets normal. BUN and creatinine within normal limits. Stool occult blood was positive. IMPRESSION: 1. Acute upper gastrointestinal bleed. Patient with multiple episodes of coffee- ground emesis on and off for the last 2 weeks' duration. The symptoms have worsened in the last 3 days. Hemoglobin was 12, dropped to 10 g/dL. We are most likely dealing with peptic ulcer disease or gastroesophageal reflux disease. The patient denies any NSAID use but he did have a history of peptic ulcers in the past. 2. History of hypertension. 3. Degenerative joint disease. 4. Mild elevation of serum transaminases. RECOMMENDATIONS: 1. Will proceed with an EGD today. 2. Continue Protonix 40 mg twice daily. 3. Monitor CBC on a daily basis. 4. Further recommendations will follow based on the upper endoscopy results. Thank you for this consultation. MMODL / IJN: [id number] /
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
== END 2020-03-28 16:55 | disposition home or self-care (01) ==
LOC: EC 11:41 → 1SOBS 14:41
PROVIDERS: ADMIT Internal Medicine; ATTEND Internal Medicine
DX: K26.0 Acute duodenal ulcer with hemorrhage (principal); K29.51 Unspecified chronic gastritis with bleeding; D62 Acute posthemorrhagic anemia; E87.1 Hypo-osmolality and hyponatremia; D72.829 Elevated white blood cell count, unspecified; R74.0 Nonspecific elevation of levels of transaminase and lactic acid dehydrogenase [LDH]; G89.4 Chronic pain syndrome; I11.9 Hypertensive heart disease without heart failure; E78.5 Hyperlipidemia, unspecified; M19.90 Unspecified osteoarthritis, unspecified site; M06.9 Rheumatoid arthritis, unspecified; N40.0 Benign prostatic hyperplasia without lower urinary tract symptoms; I65.22 Occlusion and stenosis of left carotid artery; M51.9 Unspecified thoracic, thoracolumbar and lumbosacral intervertebral disc disorder; H53.9 Unspecified visual disturbance; H40.9 Unspecified glaucoma; R94.31 Abnormal electrocardiogram [ECG] [EKG]; K08.89 Other specified disorders of teeth and supporting structures; E66.9 Obesity, unspecified; Z68.31 Body mass index [BMI] 31.0-31.9, adult; Z03.818 Encounter for observation for suspected exposure to other biological agents ruled out; Z87.11 Personal history of peptic ulcer disease; Z86.73 Personal history of transient ischemic attack (TIA), and cerebral infarction without residual deficits; Z86.69 Personal history of other diseases of the nervous system and sense organs; Z87.448 Personal history of other diseases of urinary system; Z79.01 Long term (current) use of anticoagulants; Z79.891 Long term (current) use of opiate analgesic; Z79.899 Other long term (current) drug therapy; Z79.82 Long term (current) use of aspirin; Z79.1 Long term (current) use of non-steroidal anti-inflammatories (NSAID); Z87.828 Personal history of other (healed) physical injury and trauma; Z90.49 Acquired absence of other specified parts of digestive tract; Z98.890 Other specified postprocedural states; Z90.89 Acquired absence of other organs; Z87.39 Personal history of other diseases of the musculoskeletal system and connective tissue; Z87.898 Personal history of other specified conditions; Z91.89 Other specified personal risk factors, not elsewhere classified; Z87.891 Personal history of nicotine dependence; Z82.49 Family history of ischemic heart disease and other diseases of the circulatory system; Z82.61 Family history of arthritis
CPT/HCPCS: 96375 ×2; 96376 ×2; 96361; 96374; 99285; 36415; 93005; 86900; 86901; 88305; 80053; 80048; 82140; 83605; 83690; 83735; 84484; 85025 ×2; 85610; 85730; 86850; 82272; 81003; 88342; 71045; 74176; 43239; G0378 ×2; U0003; S0138; J2250; J2405; J2001; J3010; J1885; J2704; C9113 ×2

== ENCOUNTER 2021-06-16 12:53 | Emergency (ER) | payer OTHER ==
[2021-06-16 13:03] VITALS: RESP 18
[2021-06-16] MEDS ORDERED: LIDOCAINE 1% INJ 10MG/ML (20 ML MDV) SQ ONE (13:11)
[2021-06-16] MEDS ORDERED: DIPH,PERTUS(ACELL)TETVAC-LF 0.5 ML VIAL IM ONE (13:15)
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
--- NOTE | 2021-06-16 15:33 | XR ---
EXAMINATION TYPE: XR cervical spine limited DATE OF EXAM: 06/16/2021 COMPARISON: NONE HISTORY: Pain TECHNIQUE: 4 views submitted FINDINGS: There is an anterior listhesis of 4 mm of C2 on C3. There is severe degenerative disc disea se at the remaining levels. Multilevel facet arthropathy. Alignment is documented level C7. Odontoid grossly intact. Prevertebral soft tissue structures are within normal limits. Calcification soft tiss ue the left neck likely vascular and related to the left carotid artery. IMPRESSION: Severe multilevel degenerative disc disease and facet arthropathy with approximately 4.25 mm anterolisthesis C2 on C3. Correlate clinically.
--- NOTE | 2021-06-16 15:35 | XR ---
EXAMINATION TYPE: XR hand complete RT DATE OF EXAM: 06/16/2021 COMPARISON: NONE HISTORY: Pain TECHNIQUE: Three views are submitted. FINDINGS: Diffuse osteopenia with arthropathy of the second, third and fourth DIP joints and MCP joints. Postsu rgical change involving the fifth digit. Narrowing of the radiocarpal joint with faint chondrocalcino sis noted. No acute fracture. No dislocation. Slight subluxation of the second and third proximal pha lanx relative to the corresponding metacarpal. Tiny calcific or ossific density adjacent proximal pha lanx third digit. IMPRESSION: 1. Correlate for erosive osteoarthritis 2. Postsurgical changes involving the fifth digit #3 correlate for subluxation of the proximal phalan x of the second and third digits relative to the corresponding metacarpals. Tiny calcific density adj acent to the base of the proximal phalanx third digit likely is chronic rather than chip or tiny avul iveth fracture correlate clinically.
[2021-06-16 16:20] VITALS: BP 148/72; PULSE 52; TEMP 9837
== END 2021-06-16 16:07 | disposition home or self-care (01) ==
LOC: EC 12:53
DX: S61.411A Laceration without foreign body of right hand, initial encounter (principal); M54.2 Cervicalgia; I10 Essential (primary) hypertension; E78.5 Hyperlipidemia, unspecified; Z79.899 Other long term (current) drug therapy; Z87.891 Personal history of nicotine dependence; Z23 Encounter for immunization; Z77.22 Contact with and (suspected) exposure to environmental tobacco smoke (acute) (chronic); V43.52XA Car driver injured in collision with other type car in traffic accident, initial encounter; Y92.89 Other specified places as the place of occurrence of the external cause
CPT/HCPCS: 72040; 73130; 90715; 99284; 12005; 90471; J2001

== ENCOUNTER 2021-07-01 15:42 | Emergency (ER) | payer OTHER ==
[2021-07-01 15:46] VITALS: TEMP 97.9
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
[2021-07-01 18:25] VITALS: BP 130/74; PULSE 96; RESP 18
== END 2021-07-01 18:25 | disposition home or self-care (01) ==
LOC: EC 15:42
DX: S16.1XXA Strain of muscle, fascia and tendon at neck level, initial encounter (principal); I10 Essential (primary) hypertension; E78.5 Hyperlipidemia, unspecified; M19.90 Unspecified osteoarthritis, unspecified site; Z79.899 Other long term (current) drug therapy; Z79.82 Long term (current) use of aspirin; Z86.73 Personal history of transient ischemic attack (TIA), and cerebral infarction without residual deficits; Z87.891 Personal history of nicotine dependence; V89.2XXA Person injured in unspecified motor-vehicle accident, traffic, initial encounter
CPT/HCPCS: 72125; 99283

== ENCOUNTER 2022-08-21 12:33 | Day surgery (SDC) | payer OTHER ==
[2022-08-20 10:53] VITALS: BMI 31.3
[~2022-08-21 12:33] MED LIST: LACTATED RINGERS 1,000 ML IV SCH
[2022-08-21] MEDS ORDERED: LACTATED RINGERS 1,000 ML IV SCH (12:55)
[2022-08-21 13:15] VITALS: RESP 16; TEMP 97
[2022-08-21] MEDS ORDERED: LIDOCAINE 2% INJ 20 MG/ML (2 ML VIAL) ONE (14:04)
[2022-08-21] MEDS ORDERED: PROPOFOL 10 MG/ML 20 ML VIAL IV ONE (14:04)
--- NOTE | 2022-08-21 14:26 | P.PCN ---
Date of Procedure: 08/21/22 Procedure(s) Performed: BRIEF HISTORY: Patient is a 77-year-old pleasant white male scheduled for an elective colonoscopy as a part of screening for colon cancer. PROCEDURE PERFORMED: Colonoscopy snare polypectomy. PREOPERATIVE DIAGNOSIS: Screening for colon cancer. IV sedation per Anesthesia. PROCEDURE: After informed consent was obtained, the patient, was brought into the endoscopy unit. IV sedation was administered by Anesthesia under continuous monitoring. Digital rectal examination was normal. Initially the Olympus CF-160 flexible video colonoscope was then inserted in the rectum, gradually advanced into the cecum without any difficulty. Careful examination was performed as the scope was gradually being withdrawn. Ileocecal valve and the appendiceal orifice were visualized and appeared normal. Prep was poor and several areas of the colon. Mucosa of the cecum, we normal. There was large amount of thick stool noted in the base of the cecum that could not be adequately visualized. Ascending colon there were 3 polyps measuring between 3 mm and 6 cm in size removed by snare polypectomy. Rest of the ascending colon, transverse colon, descending colon, sigmoid colon, and rectum appeared normal. Retroflexion was performed in the rectum and no lesions were seen. The patient tolerated the procedure well. IMPRESSION: 5 mm, 6 mm and 3 mm ascending colon polyp status post polypectomy Poor prep in several areas of the colon RECOMMENDATIONS: Findings of this examination were discussed with the patient is well as his family.. He was advised to follow with the biopsy results. If the biopsy results adenoma he can have a repeat colonoscopy in 3 years.
[2022-08-21 14:55] VITALS: BP 175/84; PULSE 62
== END 2022-08-21 15:44 | disposition home or self-care (01) ==
LOC: ORWHC2ENDO 12:33
PROVIDERS: ATTEND Internal Medicine Gastroenterology
DX: Z12.11 Encounter for screening for malignant neoplasm of colon (principal); D12.2 Benign neoplasm of ascending colon; I10 Essential (primary) hypertension; E78.5 Hyperlipidemia, unspecified; N40.0 Benign prostatic hyperplasia without lower urinary tract symptoms; Z79.02 Long term (current) use of antithrombotics/antiplatelets; Z79.82 Long term (current) use of aspirin; Z79.891 Long term (current) use of opiate analgesic; Z79.1 Long term (current) use of non-steroidal anti-inflammatories (NSAID); Z79.899 Other long term (current) drug therapy
CPT/HCPCS: 88305; 45385; J2704; J2001

== ENCOUNTER 2023-05-23 14:14 | Emergency (ER) | payer OTHER ==
[2023-05-23 14:19] VITALS: TEMP 98.6
[2023-05-23] MEDS ORDERED: SODIUM CHLORIDE 0.9% 500 ML 500 ML IV STA (16:47)
[2023-05-23] MEDS ORDERED: MORPHINE SULFATE 4 MG/ML SYRINGE IVP STA (16:48)
[2023-05-23 17:33] LABS: Appearance,Urine Clear (Clear); Bilirubin,Urine Negative (Negative); Blood,Urine Negative (Negative); Color,Urine Colorless; Glucose,Urine (UA) Negative (Negative); Ketones,Urine Negative (Negative); Leukocyte Esterase,Urine Negative (Negative); Nitrite,Urine Negative (Negative); Protein,Urine Negative (Negative); Urobilinogen,Urine <2.0 mg/dL (<2.0)
[2023-05-23 17:35] LABS: Basophils % (A) 0 %; Eosinophils # (A) 0.2 k/uL (0-0.7); Eosinophils % (A) 2 %; HCT 48.9 % (39.0-53.0); HGB 16.1 gm/dL (13.0-17.5); Lymphocytes # (A) 2.7 k/uL (1.0-4.8); Lymphocytes % (A) 29 %; MCH 33.8 pg (25.0-35.0); MCV 102.4 fL (80.0-100.0); Macrocytosis Slight; Mean Platelet Volume 7.8; Monocytes # (A) 0.6 k/uL (0-1.0); Monocytes % (A) 7 %; Neutrophils # (A) 5.8 k/uL (1.3-7.7); Neutrophils % (A) 62 %; Platelet Count 173 k/uL (150-450); RBC 4.78 m/uL (4.30-5.90); RDW 12.4 % (11.5-15.5); WBC 9.3 k/uL (3.8-10.6)
[2023-05-23 17:44] LABS: Partial Thromboplastin Time 23.8 sec (22.0-30.0); Prothrombin Time 10.1 sec (9.0-12.0)
[2023-05-23 17:46] LABS: ALT 16 U/L (4-49); AST 25 U/L (17-59); African American GFR (CKD) >90 (>60 ml/min/1.73 sqM); Albumin 4.4 g/dL (3.5-5.0); Alkaline Phosphatase 34 U/L (38-126); Amylase 54 U/L (30-110); Anion Gap 6 mmol/L; Blood Urea Nitrogen 16 mg/dL (9-20); Calcium 9.6 mg/dL (8.4-10.2); Carbon Dioxide 28 mmol/L (22-30); Chloride 105 mmol/L (98-107); Glucose 91 mg/dL (74-99); Lipase 46 U/L (23-300); Non-African American GFR(CKD) 88 (>60 ml/min/1.73 sqM); Potassium 4.6 mmol/L (3.5-5.1); Sodium 139 mmol/L (137-145); Total Bilirubin 0.9 mg/dL (0.2-1.3)
[2023-05-23 18:47] VITALS: BP 164/90; PULSE 63; RESP 18
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
--- NOTE | 2023-05-23 18:50 | CT ---
EXAMINATION TYPE: CT abdomen pelvis w con CT DLP: 1438.9 mGycm, Automated exposure control for dose reduction was used. DATE OF EXAM: 05/23/2023 6:21 PM COMPARISON: CT abdomen pelvis most recent from 03/27/2020 CLINICAL INDICATION:Male, 77 years old with history of RLQ abdominal pain; RLQ pain TECHNIQUE: Axial CT of the abdomen and pelvis. Sagittal and coronal reformats were created on a [employer] workstation. Contrast used:100 mL of Isovue 300 with IV Contrast, (none if empty) Oral contrast used: without Oral Contrast (none if empty) FINDINGS: The heart is moderately to enlarged for size with coronary artery calcifications aortic valve leaflet calcifications and mitral valve annular calcifications. Small hiatal hernia. ABDOMEN LIVER: Unremarkable GALLBLADDER AND BILE DUCTS: Unremarkable. PANCREAS: Unremarkable. SPLEEN: Unremarkable. ADRENAL GLANDS: Unremarkable. KIDNEYS AND URETERS: No evidence of hydronephrosis or renal calculus. The ureters are unremarkable. PELVIS BLADDER: Unremarkable REPRODUCTIVE: Unremarkable. ABDOMEN & PELVIS STOMACH AND BOWEL: Multiple dilated loops of small bowel are present throughout the abdomen measuring up tor 3.7 cm is predominantly distal small bowel.. Mild thickening of the terminal ileum messina latha uring up to 6 mm series 201 image 53 and series 202 image 45. There is stool seen throughout the colo n. The appendix is not definitively visualized. PERITONEUM/RETROPERITONEUM: No evidence of pneumoperitoneum or free fluid. VASCULATURE: Moderate atherosclerotic calcifications are present throughout the abdominal aorta and i ts branches. No evidence of aortic aneurysm. MUSCULOSKELETAL: No acute osseous abnormalities. Severe disc degeneration changes are present through out the thoracolumbar spine. Scoliosis changes to the spine. LYMPH NODES: No gross evidence for lymphadenopathy. SOFT TISSUE/ABDOMINAL WALL: Bilateral fat-containing inguinal hernias. IMPRESSION: 1. There is multiple distended loops of distal small bowel ileum throughout the abdomen without defi nitive transition point. There is stool present throughout the colon. There may be mild wall thickeni ng of the terminal ileum correlate for terminal ileitis. 2. Moderate cardiomegaly with moderate coronary artery and aortic valve leaflet calcifications. Smal l hiatal hernia. 3. Fat-containing inguinal hernias.
[2023-05-23] MEDS ORDERED: ACET/COD 300 MG/30 MG STARTER PACK 6 TAB BTL PO STA (19:27)
== END 2023-05-23 19:38 | disposition home or self-care (01) ==
LOC: EC 14:14
DX: K50.00 Crohn's disease of small intestine without complications (principal); I51.7 Cardiomegaly; K40.90 Unilateral inguinal hernia, without obstruction or gangrene, not specified as recurrent; K44.9 Diaphragmatic hernia without obstruction or gangrene; K21.9 Gastro-esophageal reflux disease without esophagitis; E78.5 Hyperlipidemia, unspecified; I10 Essential (primary) hypertension; M19.90 Unspecified osteoarthritis, unspecified site; Z77.22 Contact with and (suspected) exposure to environmental tobacco smoke (acute) (chronic); Z86.73 Personal history of transient ischemic attack (TIA), and cerebral infarction without residual deficits; Z79.1 Long term (current) use of non-steroidal anti-inflammatories (NSAID); Z79.899 Other long term (current) drug therapy; Z79.82 Long term (current) use of aspirin
CPT/HCPCS: 36415; 80053; 82150; 83605; 83690; 85025; 85610; 85730; 81003; 74177; 99284; 96374; 96361 ×2; J2270; Q9967